=== PATIENT | female | born 2000 | race Caucasian/White ===

== ENCOUNTER 2021-11-19 06:25 | Day surgery (SDC) | payer BC ==
[2021-11-15 16:13] VITALS: BMI 19.7
[2021-11-19] MEDS ORDERED: OXYMETAZOLINE 0.05% NASAL SOLUTION 15 ML BOTTLE NS ONE (07:14)
[2021-11-19] MEDS ORDERED: LIDOCAINE 1%/EPI 1:100000 (20 ML MULTI DOSE VIAL) ONE ×3 (07:14→08:21)
[2021-11-19] MEDS ORDERED: MIDAZOLAM HCL 2 MG/2 ML SINGLE DOSE VIAL ONE ×2 (07:39)
[2021-11-19] MEDS ORDERED: PROPOFOL 20 ML ONE (07:53)
[2021-11-19] MEDS ORDERED: ROCURONIUM BROMIDE 50 MG/5 ML SYRINGE ONE (07:55)
[2021-11-19] MEDS ORDERED: ONDANSETRON 4 MG/2 ML VIAL ONE ×2 (08:12→12:08)
[2021-11-19] MEDS ORDERED: ceFAZolin SODIUM 1 GM VIAL ONE (08:12)
[2021-11-19] MEDS ORDERED: DEXAMETHASONE SOD PHOSPHATE 4 MG/1 ML VIAL ONE (08:12)
[2021-11-19] MEDS ORDERED: SEVOFLURANE 250 ML BTL ONE (10:03)
[2021-11-19] MEDS ORDERED: BACITRACIN 15 GM TUBE TOPICAL OINTMENT ONE (11:57)
[2021-11-19] MEDS ORDERED: oxyCODONE HCL 5 MG TABLET PO PRN (12:25)
[2021-11-19] MEDS ORDERED: ONDANSETRON 4 MG/2 ML VIAL IVPUSH PRN (12:25)
[2021-11-19] MEDS ORDERED: LACTATED RINGERS SOLUTION 1,000 ML IV SCH ×2 (12:30→12:45)
[2021-11-19] MEDS ORDERED: traMADol HCL 50 MG TABLET PO PRN (12:32)
[2021-11-19] MEDS ORDERED: ONDANSETRON 4 MG/2 ML VIAL IVPB PRN (12:32)
[2021-11-19 14:15] VITALS: PULSE 67; TEMP 97.5
[2021-11-19 16:18] VITALS: BP 126/74
== END 2021-11-19 16:30 | disposition home or self-care (01) ==
LOC: FASU 06:25
PROVIDERS: ATTEND Plastic Surgery
PROC: 09SL0ZZ Reposition Nasal Turbinate, Open Approach (ICD-10-PCS; 2021-11-19)
PROC: 09SM0ZZ Reposition Nasal Septum, Open Approach (ICD-10-PCS; principal; 2021-11-19 08:47)
DX: J34.2 Deviated nasal septum (principal); J39.8 Other specified diseases of upper respiratory tract
CPT/HCPCS: 81025; 88302-TC; 94760